=== PATIENT | female | born 1990 | race Caucasian/White ===

== ENCOUNTER 2018-04-02 00:49 | Inpatient (IN) | payer MEDICAID ==
[2018-04-01 11:40] LABS: AMORPHOUS SEDIMENT,URINE TRACE /HPF; APPEARANCE,URINE CLOUDY; BILIRUBIN,URINE NEGATIVE (NEGATIVE); COLOR,URINE YELLOW; GLUCOSE, URINE NEGATIVE (NEGATIVE); KETONES,URINE NEGATIVE (NEGATIVE); LEUKOCYTE ESTERASE,URINE SMALL (NEGATIVE); NITRITE,URINE NEGATIVE (NEGATIVE); PROTEIN,URINE NEGATIVE (NEGATIVE); URINE SPECIFIC GRAVITY 1.009; UROBILINOGEN,URINE NEGATIVE mg/dL (<2.0)
[2018-04-01 11:46] LABS: BASOPHILS % (AUTO) 0.4 % (0-2); EOSINOPHILS % (AUTO) 1.8 % (0-6); HEMATOCRIT 36.8 % (36.0-47.0); HEMOGLOBIN 12.5 g/dL (12.0-15.5); LYMPHOCYTES % (AUTO) 22.7 % (13-45); MEAN CORPUSCULAR HEMOGLOBIN 30.8 pg (27.0-33.4); MEAN CORPUSCULAR HGB CONC 34.1 g/dL (32.0-36.0); MEAN CORPUSCULAR VOLUME 90 fl (80-97); MONOCYTES % (AUTO) 4.4 % (3-13); PLATELET COUNT 247 10^3/uL (150-450); RED BLOOD COUNT 4.07 10^6/uL (3.72-5.28); RED CELL DISTRIBUTION WIDTH 13.9 % (11.5-14.0); SEGMENTED NEUTROPHILS % (AUTO) 70.7 % (42-78); WHITE BLOOD COUNT 14.6 10^3/uL (4.0-10.5)
[2018-04-01 11:47] LABS: ABSOLUTE BASOPHILS # (AUTO) 0.1 10^3/uL (0.0-0.2); ABSOLUTE EOSINOPHILS # (AUTO) 0.3 10^3/uL (0.0-0.6); ABSOLUTE LYMPHOCYTES (AUTO) 3.3 10^3/uL (0.5-4.7); ABSOLUTE MONOCYTES (AUTO) 0.6 10^3/uL (0.1-1.4); ABSOLUTE NEUT (AUTO) 10.4 10^3/uL (1.7-8.2); TOTAL CELLS COUNTED % (AUTO) 100 %
[2018-04-01 12:26] LABS: URINE AMPHETAMINES SCREEN NEGATIVE; URINE BARBITURATES SCREEN NEGATIVE; URINE BENZODIAZEPINES SCREEN NEGATIVE; URINE COCAINE SCREEN NEGATIVE; URINE MARIJUANA (THC) SCREEN NEGATIVE; URINE METHADONE SCREEN NEGATIVE; URINE PHENCYCLIDINE SCREEN NEGATIVE
[2018-04-02] MEDS ORDERED: CEFAZOLIN SODIUM 2 GM in NORMAL SALINE 100 ML IV PRN (05:00)
[2018-04-02] MEDS ORDERED: RINGERS SOLUTION,LACTATED 2,000 ML IV PRN (05:00)
[2018-04-02] MEDS ORDERED: LIDOCAINE 2% INJ-PF (20 MG/ML) 10 ML AMPUL ONE (07:10)
[2018-04-02] MEDS ORDERED: FENTANYL CITRATE INJ/PF 100 MCG/2 ML AMPUL ONE (07:17)
[2018-04-02] MEDS ORDERED: OXYTOCIN 10 UNIT/ML VIAL ONE (07:17)
[2018-04-02] MEDS ORDERED: MIDAZOLAM 2 MG/2 ML INJ ONE (07:17)
[2018-04-02] MEDS ORDERED: ONDANSETRON HCL INJ/PF 4 MG/2 ML SDV ONE (07:18)
[2018-04-02] MEDS ORDERED: OXYTOCIN/NORMAL SALINE 20 UNIT/1,000 ML RTUINJ ONE (07:18)
[2018-04-02] MEDS ORDERED: PHENYLEPHRINE HCL INJ/PF 10 MG/1 ML SDV ONE (07:18)
[2018-04-02] MEDS ORDERED: ACETAMINOPHEN 1,000 MG/100 ML RTUPB IV ONE (07:18)
[2018-04-02] MEDS ORDERED: TETRACAINE HCL/PF 20MG/2ML AMPULE (SPINAL) ONE (07:19)
[2018-04-02] MEDS ORDERED: MEPERIDINE HCL/PF INJ 25 MG/1 ML DISP.SYRIN IV PRN (08:30)
[2018-04-02] MEDS ORDERED: DIPHENHYDRAMINE HCL 50 MG/ML VIAL IV PRN (08:30)
[2018-04-02] MEDS ORDERED: FENTANYL CITRATE INJ/PF 100 MCG/2 ML AMPUL IV PRN ×3 (08:30)
[2018-04-02] MEDS ORDERED: PROMETHAZINE HCL INJ 25 MG/1 ML VIAL IV PRN ×2 (08:30→09:01)
[2018-04-02] MEDS ORDERED: MORPHINE SULFATE 10 MG/ML INJ IV PRN (08:30)
[2018-04-02] MEDS ORDERED: ACETAMINOPHEN 325 MG TABLET PO PRN (09:01)
[2018-04-02] MEDS ORDERED: HYDROMORPHONE HCL INJ/PF 2 MG/ML AMPULE IV PRN (09:01)
[2018-04-02] MEDS ORDERED: ACETAMINOPHEN 1,000 MG/100 ML RTUPB IV PRN (09:01)
[2018-04-02] MEDS ORDERED: OXYTOCIN/NORMAL SALINE 20 UNIT/1,000 ML RTUINJ IV PRN (09:01)
[2018-04-02] MEDS ORDERED: SIMETHICONE 80 MG TAB.CHEW PO PRN (09:01)
[2018-04-02] MEDS ORDERED: DIPH/PERTUSS(ACELL)/TETANUS VAC/PF 0.5 ML SYR (>=10YO) IM PRN (09:01)
[2018-04-02] MEDS ORDERED: MEASLES,MUMPS&RUBELLA VACC/PF 0.5 ML VIAL SUBCUT PRN (09:01)
[2018-04-02] MEDS ORDERED: RINGERS SOLUTION,LACTATED 1,000 ML IV PRN (09:01)
[2018-04-02] MEDS ORDERED: OXYCODONE-ACETAMINOPHEN 5-325 MG TABLET PO PRN (09:01)
--- NOTE | 2018-04-02 09:05 | PDOC DELIVERY SUMMARY ---
Delivery Summary - Maternal Hx : II Hx # Pregnancies: 1 DAYAMI: 04/09/18 Gestational Age: 39 Ruptured Membranes: AROM Time of Rupture: 08:24 Fluids: Clear - Delivery Presentation: Vertex Heart Rate Monitoring: Done Pre-Operatively Support Person Present: Yes Location: OR : Scheduled Placenta: Within Normal Limits Delivery of Placenta Date: 04/02/18 Delivery of Placenta Time: 08:27 - Medications Type of Anesthesia:: Spinal - Infant Assess and Care Baby 1 Male Delivery of Date: 04/02/18 Delivery of Time: 08:25 Preprinted Number On Band: [id number] Infant Skin to Skin: No To Nursery At: 08:32 Mode of Transport: Bassinet - Delivery Personnel Trailer Assembler: LAZARUS POTTER RN: NATALIIA PEREZ RN: KIANA BELL
--- NOTE | 2018-04-02 09:16 | Operative Report ---
Operative Report DATE OF SURGERY: 04/02/18 PREOPERATIVE DIAGNOSIS: Patient desires repeat to prevent risk of uterine rupture. She also desires tubal ligation POSTOPERATIVE DIAGNOSIS: Same OPERATION: Repeat via low transverse uterine incision tubal ligation with bilateral Filshie clip application SURGEON: ARNULFO BUCHANAN ANESTHESIA: Spinal TISSUE REMOVED OR ALTERED: Placenta COMPLICATIONS: None ESTIMATED BLOOD LOSS: 500 cc INTRAOPERATIVE FINDINGS: Viable male normal female pelvis PROCEDURE: Patient was taken to the OR and placed in supine position after her spinal anesthesia. She is prepared and draped in sterile fashion. Shaw was placed for drainage of the bladder. Low transverse incision was made and carried down the level of the fascia. The fascial incision was made with knife and extended bilaterally with curved Witt scissors. The fascia was off the rectus muscles using sharp and blunt dissection. The rectus muscles are in the midline. The peritoneum was entered without incident. Bladder blade was placed in uterine segment was identified. A low transverse incision was made creating a bladder flap. Bladder blade was placed low transverse uterine incision was made with the c-safe knife and extended with fingertips. The baby was delivered with some fundal pressure. Mouth and nose were suctioned free. The cord is doubly clamped and cut. Baby is passed off to the maple products maker in attendance. The placenta was manually extracted with trailing membranes. The uterus was externalized wrapped in a moist lap sponge. Uterine contents wiped free. Uterus was closed with a running locking layer of 0 chromic suture using the second layer to imbricate the first completing a double layer closure of the uterus. The serosa was closed with a running 2-0 chromic stitch. The tubal ligation was carried out using Filshie clips placed at each mid isthmic portion on the fallopian tubes. Each tube was identified by its fimbriated ends for proper anatomic identification. The pelvis was irrigated and suctioned free of fluid the uterus was replaced in the abdomen. The abdominal wall peritoneum was closed with running 2-0 chromic stitch. Fascia was closed with a running 0 Vicryl in 2 segments. Roverto's layer was brought together with 0 plain gut stitch and the skin was closed with running subcuticular 4-0 undyed Vicryl stitch. The wound was dressed mother and baby did well.
[2018-04-02] MEDS: DOCUSATE SODIUM 100 MG CAPSULE PO SCH ×2 (11:01→17:13)
[2018-04-02] MEDS: PRENATAL VITAMIN W DHA CAPSULE PO SCH (11:01)
[2018-04-02] MEDS: KETOROLAC TROMETHAMINE INJ/PF 30 MG/1 ML SDV IV SCH ×2 (14:01→22:54)
[2018-04-02] MEDS: OXYCODONE-ACETAMINOPHEN 5-325 MG TABLET PO PRN (17:13)
[2018-04-03] MEDS: KETOROLAC TROMETHAMINE INJ/PF 30 MG/1 ML SDV IV SCH (06:17)
[2018-04-03 07:07] LABS: HEMATOCRIT 31.6 % (36.0-47.0); HEMOGLOBIN 10.7 g/dL (12.0-15.5); MEAN CORPUSCULAR HEMOGLOBIN 30.7 pg (27.0-33.4); MEAN CORPUSCULAR HGB CONC 33.7 g/dL (32.0-36.0); MEAN CORPUSCULAR VOLUME 91 fl (80-97); PLATELET COUNT 194 10^3/uL (150-450); RED BLOOD COUNT 3.47 10^6/uL (3.72-5.28); RED CELL DISTRIBUTION WIDTH 13.9 % (11.5-14.0); WHITE BLOOD COUNT 14.6 10^3/uL (4.0-10.5)
[2018-04-03] MEDS: PRENATAL VITAMIN W DHA CAPSULE PO SCH (09:52)
[2018-04-03] MEDS: DOCUSATE SODIUM 100 MG CAPSULE PO SCH ×2 (09:53→17:49)
--- NOTE | 2018-04-03 11:22 | PDOC PROGRESS REPORT ---
Subjective-OB Progress Note for:: 04/03/18 Subjective: reports bleeding slowing, pain controlled with current meds, tolerating diet, denies needs, +passing gas Physical Exam (OB) Vital Signs: Temp Pulse Resp BP Pulse Ox 97.9 F 73 15 115/66 98 04/03/18 07:53 04/03/18 07:53 04/03/18 07:53 04/03/18 07:53 04/03/18 07:53 Intake & Output 04/02/18 04/03/18 04/04/18 06:59 06:59 06:59 Intake Total 1250 400 Output Total 2100 Balance -850 400 Weight 83.01 kg - Dressing Removed: No - opsite dressing D&I, no redness, drainage or swelling noted Incision: Dressing, Well Approximated - Abdomen Description: Tender, Soft Hernia Present: No Fundal Description: Firm, Midline Fundal Height: u/u - u/2 - Abdominal Inspection: Normal - Extremities Lower extremities: Elvis's sign - neg Calf: Normal, Nontender Objective-Diagnostic Laboratory: 04/03/18 06:32 04/03/18 06:32 WBC 14.6 H RBC 3.47 L Hgb 10.7 L Hct 31.6 L MCV 91 MCH 30.7 MCHC 33.7 RDW 13.9 Plt Count 194 Assessment and Plan(PN) - Assessment and Plan (1) Delivery by emergency caesarean section Is this a current diagnosis for this admission?: Yes - Time Spent with Patient Time with patient: Less than 15 minutes Medications reviewed and adjusted accordingly: Yes - Disposition Anticipated Discharge: Home Within: within 24 hours
[2018-04-03] MEDS: IBUPROFEN 800 MG TABLET PO SCH ×3 (12:51→23:40)
[2018-04-04] MEDS: OXYCODONE-ACETAMINOPHEN 5-325 MG TABLET PO PRN (00:45)
[2018-04-04] MEDS: IBUPROFEN 800 MG TABLET PO SCH ×2 (06:03→12:26)
[2018-04-04 09:41] VITALS: BP 129/71
--- NOTE | 2018-04-04 09:49 | PDOC PROGRESS REPORT ---
Subjective-OB Progress Note for:: 04/04/18 Subjective: Ready to go home. Physical Exam (OB) Vital Signs: Temp Pulse Resp BP Pulse Ox 97.6 F 74 16 129/71 H 97 04/04/18 09:36 04/04/18 09:36 04/04/18 09:36 04/04/18 09:36 04/04/18 09:36 Intake & Output 04/03/18 04/04/18 04/05/18 06:59 06:59 06:59 Intake Total 1250 3550 Output Total 2100 Balance -850 3550 Weight 81 kg - PIH/Pre-Eclampsia DTR's: 2 + Clonus: Negative Headache: Absent Epigastric Pain: No Visual Changes: No - Dressing Removed: No - opsite dressing D&I Incision: Well Approximated Closure Type: Surgical Glue - Lochia Lochia Amount: Scant < 10 ml Lochia Color: Rubra/Red - Abdomen Description: Tender, Soft Hernia Present: No Bowel Sounds: Normoactive Flatus Presence: Present Stool: No Fundal Description: Firm, Midline Fundal Height: u/u - u/2 Objective-Diagnostic Laboratory: 04/03/18 06:32 Assessment and Plan(PN) - Time Spent with Patient Medications reviewed and adjusted accordingly: Yes - Disposition Anticipated Discharge: Home
[2018-04-04] MEDS: PRENATAL VITAMIN W DHA CAPSULE PO SCH (09:52)
[2018-04-04] MEDS: DOCUSATE SODIUM 100 MG CAPSULE PO SCH (09:53)
--- NOTE | 2018-04-04 10:18 | PDOC DISCHARGE SUMMARY ---
Final Diagnosis Discharge Date: 04/04/18 - Final Diagnosis (1) Delivery by elective caesarean section Is this a current diagnosis for this admission?: Yes (2) Gestational hypertension Is this a current diagnosis for this admission?: Yes (3) Is this a current diagnosis for this admission?: Yes (4) Scoliosis Is this a current diagnosis for this admission?: Yes Discharge Data - Discharge Medication Prescriptions: Oxycodone HCl/Acetaminophen [Percocet 5-325 mg Tablet] 1 tab PO Q4HP PRN #20 tablet PRN Reason: Ibuprofen [Motrin 800 mg Tablet] 800 mg PO Q6 #30 tablet Home Medications: Vit/Iron Fum/Folic AC [ Tablet] 1 tab PO DAILY 02/03/16 Ibuprofen [Motrin 800 mg Tablet] 800 mg PO Q6 #30 tablet 04/04/18 Oxycodone HCl/Acetaminophen [Percocet 5-325 mg Tablet] 1 tab PO Q4HP PRN #20 tablet 04/04/18 Gestational Age: 39 wks Reason(s) for Admission: Ceasarean Section-Repeat Procedures: Ultrasound Intrapartum Procedure(s): : Low Cervical, Transverse - Data Baby 1 Male at 1 minute: 7 at 5 minutes: 9 Weight: 2510 kg Home with Mother: Yes Complications: No - Diagnosis Test Laboratory: Temp Pulse Resp BP Pulse Ox 97.6 F 74 16 129/71 H 97 04/04/18 09:36 04/04/18 09:36 04/04/18 09:36 04/04/18 09:36 04/04/18 09:36 04/01/18 04/01/18 04/03/18 10:40 11:00 06:32 RBC 4.07 3.47 L Hgb 12.5 10.7 L Hct 36.8 31.6 L Urine Opiates Screen NEGATIVE - Discharge information/Instructions Discharge Activity: Activity As Tolerated, Balance Activity w/Rest, No Lifting Over 10 Pounds, No Lifting/Push/Pulling, Non-Ambulatory Child, Pelvic Rest, Slowly Increase Activity, No tub bath Discharge Diet: Regular Disposition: HOME, SELF-CARE Follow up with: [facility] in: 1, Weeks
== END 2018-04-04 16:57 | disposition home or self-care (01) | DRG 766 ==
LOC: 2S 05:17
PROVIDERS: ADMIT Obstetrics & Gynecology; ATTEND Obstetrics & Gynecology
PROC: 0UL70CZ Occlusion of Bilateral Fallopian Tubes with Extraluminal Device, Open Approach (ICD-10-PCS; 2018-04-02)
PROC: 4A1HXCZ Monitoring of Products of Conception, Cardiac Rate, External Approach (ICD-10-PCS; 2018-04-02)
PROC: 10D00Z1 Extraction of Products of Conception, Low, Open Approach (ICD-10-PCS; principal; 2018-04-02 07:45)
DX: O13.4 Gestational [pregnancy-induced] hypertension without significant proteinuria, complicating childbirth (principal); O34.211 Maternal care for low transverse scar from previous cesarean delivery; O99.89 Other specified diseases and conditions complicating pregnancy, childbirth and the puerperium; M41.9 Scoliosis, unspecified; Z30.2 Encounter for sterilization; Z3A.39 39 weeks gestation of pregnancy; Z37.0 Single live birth; Z80.3 Family history of malignant neoplasm of breast
CPT/HCPCS: 1961; 36415; 59025; 80307; 81001; 85025; 85027; 86850; 86900; 86901; 94799; J0131; J0690; J1170; J1885; J2250; J2370; J2405; J2590; J3010; J3490; J7120

== ENCOUNTER 2019-10-15 00:58 | Inpatient (IN) | payer SELFPAY ==
--- NOTE | 2019-10-15 02:10 | ER Document Report ---
ED Medical Screen (RME) - General Stated Complaint: UPPER ABDOMINAL PAIN Time Seen by Provider: 10/15/19 02:03 Primary Care Provider: ARNULFO BUCHANAN MD [Primary Care Provider] - Follow up as needed Mode of Arrival: Ambulatory Information source: Patient Notes: Otherwise healthy 29-year-old female presents emergency department chief complaint of epigastric pain. Patient reports she has "attacks" every so often for the last few years. Tonight she states that the pain is the worst it has been, states the pain is in the epigastric and right upper quadrant area with mild nausea. She still has her gallbladder. Tenderness in the epigastric area and right upper quadrant. Negative Ahmadi sign however exam is limited due to position in triage. I have greeted and performed a rapid initial assessment of this patient. A comprehensive ED assessment and evaluation of the patient, analysis of test results and completion of the medical decision making process will be conducted by additional ED providers. I have specifically instructed the patient or family members with the patient to immediately return to any nursing staff should anything change in the patient's condition or with their chief complaint. TRAVEL OUTSIDE OF THE [place] IN LAST 30 DAYS: No - Related Data Allergies/Adverse Reactions: No Known Allergies Allergy (Verified 04/01/18 11:20) Past Medical History - Past Medical History Cardiac Medical History: Reports: Hx Hypertension - with last Denies: Hx Heart Murmur Neurological Medical History: Denies: Hx Cerebrovascular Accident Musculoskeltal Medical History: Denies Hx Fibromyalgia Traumatic Medical History: Denies: Hx Fractures Physical Exam - Vital signs Vitals: Temp Pulse Resp BP Pulse Ox 97.6 F 63 20 141/73 H 99 10/15/19 01:02 10/15/19 01:02 10/15/19 01:02 10/15/19 01:02 10/15/19 01:02 Course - Vital Signs Vital signs: Temp Pulse Resp BP Pulse Ox 97.6 F 63 20 141/73 H 99 10/15/19 01:02 10/15/19 01:02 10/15/19 01:02 10/15/19 01:02 10/15/19 01:02 Doctor's Discharge - Discharge Referrals: ARNULFO BUCHANAN MD [Primary Care Provider] - Follow up as needed
[2019-10-15 02:41] LABS: ABSOLUTE EOSINOPHILS # (AUTO) 0.2 10^3/uL (0.0-0.6); ABSOLUTE LYMPHOCYTES (AUTO) 2.2 10^3/uL (0.5-4.7); ABSOLUTE MONOCYTES (AUTO) 0.5 10^3/uL (0.1-1.4); ABSOLUTE NEUT (AUTO) 6.8 10^3/uL (1.7-8.2); BASOPHILS % (AUTO) 0.2 % (0-2); HEMOGLOBIN 13.9 g/dL (12.0-15.5); LYMPHOCYTES % (AUTO) 22.5 % (13-45); MEAN CORPUSCULAR HEMOGLOBIN 30.9 pg (27.0-33.4); MEAN CORPUSCULAR HGB CONC 33.9 g/dL (32.0-36.0); MEAN CORPUSCULAR VOLUME 91 fl (80-97); MONOCYTES % (AUTO) 5.5 % (3-13); PLATELET COUNT 229 10^3/uL (150-450); RED BLOOD COUNT 4.49 10^6/uL (3.72-5.28); RED CELL DISTRIBUTION WIDTH 13.9 % (11.5-14.0); SEGMENTED NEUTROPHILS % (AUTO) 69.8 % (42-78); TOTAL CELLS COUNTED % (AUTO) 100 %; WHITE BLOOD COUNT 9.7 10^3/uL (4.0-10.5)
[2019-10-15 02:43] LABS: APPEARANCE,URINE CLEAR; BILIRUBIN,URINE NEGATIVE (NEGATIVE); COLOR,URINE YELLOW; GLUCOSE, URINE NEGATIVE (NEGATIVE); KETONES,URINE NEGATIVE (NEGATIVE); LEUKOCYTE ESTERASE,URINE NEGATIVE (NEGATIVE); NITRITE,URINE NEGATIVE (NEGATIVE); PROTEIN,URINE NEGATIVE (NEGATIVE); URINE SPECIFIC GRAVITY 1.009
[2019-10-15 02:57] LABS: ALBUMIN 4.1 g/dL (3.5-5.0); ALKALINE PHOSPHATASE 77 U/L (38-126); ANION GAP 9 (5-19); ASPARTATE AMINO TRANSFERASE 692 U/L (14-36); BILIRUBIN,DIRECT 0.5 mg/dL (0.0-0.4); BILIRUBIN,TOTAL 0.8 mg/dL (0.2-1.3); BLOOD UREA NITROGEN 13 mg/dL (7-20); CALCIUM 9.3 mg/dL (8.4-10.2); CARBON DIOXIDE 26 mmol/L (22-30); CHLORIDE 106 mmol/L (98-107); GLUCOSE 111 mg/dL (75-110); POTASSIUM 4.4 mmol/L (3.6-5.0)
--- NOTE | 2019-10-15 03:23 | RADIOLOGY REPORT (SQ) ---
EXAM DESCRIPTION: US ABDOMEN LIMITED COMPLETED DATE/TME: 10/15/2019 02:08 CLINICAL HISTORY: 29 years Female, RUQ/epigastric pain Comparison: None. LIMITATIONS: None. FINDINGS: Cholelithiasis, negative sonographic Ahmadi's test, liver, a 1.0-cm diameter common bile duct, no intrahepatic ductal dilation, hepatopetal patent flow of the portal vein, 11-cm right kidney, pancreas, visualized vasculature/abdominal aorta, and no significant ascites appear otherwise unremarkable. IMPRESSION: No acute findings. Cholelithiasis. 1.0 cm dilated common bile duct, nonspecific. No intrahepatic ductal dilation.
--- NOTE | 2019-10-15 04:40 | ER Document Report ---
ED GI/ - General Chief Complaint: Abdominal Pain Stated Complaint: UPPER ABDOMINAL PAIN Time Seen by Provider: 10/15/19 02:03 Primary Care Provider: ARNULFO BUCHANAN MD [Primary Care Provider] - Follow up as needed Mode of Arrival: Ambulatory Information source: Patient Notes: 29-year-old female presents to ED for complaint of epigastric right upper quadrant pain. She states she is been having these "attacks "every so often for the last 3 to 4 years. She states tonight the pain was worse she has had. The pain is in the right upper quadrant with some mild nausea. She does have her gallbladder. She has never had any ultrasounds of her gallbladder. TRAVEL OUTSIDE OF THE [place] IN LAST 30 DAYS: No - HPI Patient complains to provider of: Abdominal pain, Other Onset: Other - States she has had this off and on for couple years this is the worst pain she has had tonight. She states the pain is better now is just a achy tenderness now Timing/Duration: Intermittent Quality of pain: Dull Severity at maximum: Moderate Severity in ED: Mild Pain Level: 1 Location: RUQ Vaginal bleeding (Compared to normal period): None LMP: Yesterday Associated symptoms: Nausea Exacerbated by: Food Relieved by: Denies Similar symptoms previously: Yes Recently seen / treated by doctor: No - Related Data Allergies/Adverse Reactions: No Known Allergies Allergy (Verified 04/01/18 11:20) Past Medical History - General Information source: Patient - Social History Smoking Status: Current Every Day Smoker Cigarette use (# per day): Yes - 1/2 pack/day Smoking Education Provided: Yes - 4 minutes Frequency of alcohol use: None Drug Abuse: None Lives with: Family Family History: Reviewed & Not Pertinent Patient has suicidal ideation: No Patient has homicidal ideation: No - Past Medical History Cardiac Medical History: Reports: Hx Hypertension - with last Pulmonary Medical History: Reports: None EENT Medical History: Reports: None Neurological Medical History: Reports: None Endocrine Medical History: Reports: None Renal/ Medical History: Reports: None Malignancy Medical History: Reports: None GI Medical History: Reports: None Musculoskeletal Medical History: Reports Hx Musculoskeletal Deformity - Scoliosis Skin Medical History: Reports None Psychiatric Medical History: Reports: None Traumatic Medical History: Reports: None Infectious Medical History: Reports: None Past Surgical History: Reports: Hx Orthopedic Surgery - [facility] - Immunizations Immunizations up to date: Yes Review of Systems - Review of Systems Constitutional: No symptoms reported EENT: No symptoms reported Cardiovascular: No symptoms reported Respiratory: No symptoms reported Gastrointestinal: Abdominal pain, Nausea Genitourinary: No symptoms reported Female Genitourinary: No symptoms reported Musculoskeletal: No symptoms reported Skin: No symptoms reported Hematologic/Lymphatic: No symptoms reported Neurological/Psychological: No symptoms reported -: Yes All other systems reviewed and negative Physical Exam - Vital signs Vitals: Temp Pulse Resp BP Pulse Ox 97.6 F 63 20 141/73 H 99 10/15/19 01:02 10/15/19 01:02 10/15/19 01:02 10/15/19 01:02 10/15/19 01:02 Interpretation: Normal - General General appearance: Appears well, Alert - HEENT Head: Normocephalic, Atraumatic Eyes: Normal Pupils: PERRL - Respiratory Respiratory status: No respiratory distress Chest status: Nontender Breath sounds: Normal Chest palpation: Normal - Cardiovascular Rhythm: Regular Heart sounds: Normal auscultation Murmur: No - Abdominal Inspection: Normal Distension: No distension Bowel sounds: Normal Tenderness: Tender - Minimal right upper quadrant tenderness Organomegaly: No organomegaly - Back Back: Normal, Nontender - Extremities General upper extremity: Normal inspection, Nontender, Normal color, Normal ROM, Normal temperature General lower extremity: Normal inspection, Nontender, Normal color, Normal ROM, Normal temperature, Normal weight bearing. No: Elvis's sign - Neurological Neuro grossly intact: Yes Cognition: Normal Orientation: AAOx4 [place] Coma Scale Eye Opening: Spontaneous [place] Coma Scale Verbal: Oriented Tessy Coma Scale Motor: Obeys Commands [place] Coma Scale Total: 15 Speech: Normal Motor strength normal: LUE, RUE, LLE, RLE Sensory: Normal - Psychological Associated symptoms: Normal affect, Normal mood - Skin Skin Temperature: Warm Skin Moisture: Dry Skin Color: Normal Course - Re-evaluation Re-evalutation: 10/15/19 06:20 Surgeon was consulted earlier for the elevated AST of 692 with dilated common bile duct and cholelithiasis. He stated she would need an MRCP and possible transfer for ERCP due to the elevation in the AST with dilated common bile duct at 1.0 cm and cholelithiasis. [facility] has been contacted they have accepted the patient as long as there is no change with the MRCP I Dr. Riccardo Ahumada has accepted the patient and they are arranging a room. MRCP has been ordered and MRI form sent to MRI. Dr. Lemus has completed the [facility] form. 10/15/19 08:53 MRCP shows patient does have cholelithiasis but no dilated ducts. States the common bile duct is normal caliber no dilatation of the pancreatic duct no ductal filling defects. Pancreas is generally homogenous no gross masses or significant signal alteration surrounding inflammatory changes liver spleen kidney and adrenals are no significant abnormalities. Dr. Medina has been called to inform him that he will need to come and see the patient to determine dispensation because the transfer will be canceled as she does not need ERCP. Dr. Hernandez said he would be down to see the patient in the next 15-20 minutes. - Vital Signs Vital signs: Temp Pulse Resp BP Pulse Ox 97.6 F 62 18 114/60 98 10/15/19 06:04 10/15/19 06:04 10/15/19 06:04 10/15/19 06:04 10/15/19 06:04 - Laboratory Result Diagrams: 10/15/19 02:22 10/15/19 02:22 Laboratory results interpreted by me: 10/15/19 10/15/19 02:20 02:22 Glucose 111 H Direct Bilirubin 0.5 H AST 692 H Urine Urobilinogen 2.0 H - Diagnostic Test Radiology reviewed: Image reviewed, Reports reviewed Discharge - Discharge Clinical Impression: Elevated LFTs Cholelithiasis Qualifiers: Cholelithiasis location: gallbladder Cholecystitis presence: without cholecystitis Biliary obstruction: without biliary obstruction Qualified Code(s): K80.20 - Calculus of gallbladder without cholecystitis without obstruction Disposition: ADMITTED INPATIENT Admitting Provider: Surgicalist - juan Unit Admitted: Surgical Floor Referrals: ARNULFO BUCHANAN MD [Primary Care Provider] - Follow up as needed
--- NOTE | 2019-10-15 04:55 | PDOC CONSULTATION ---
Consultation Consult Date: 10/15/19 Provider Consulted: CLARENCE BARLOW Consult reason:: Abdominal pains with gallstones History of Present Illness Admission Date/PCP: ARNULFO BUCHANAN MD History of Present Illness: FARIDA PITT is a 29 year old female who suddenly complained of upper abdominal pains radiating to the back around 9 PM last night after a fatty meal. This was associated with nausea. The pains persisted and patient went to the ED at around midnight and ultrasound of the gallbladder showed gallstones as well as dilated common bile duct. Her LFTs are elevated. Past Medical History Cardiac Medical History: Reports: Hypertension - with last Denies: Heart Murmur Pulmonary Medical History: Reports: None EENT Medical History: Reports: None Neurological Medical History: Reports: None Endocrine Medical History: Reports: None Renal/ Medical History: Reports: None Malignancy Medical History: Reports: None GI Medical History: Reports: None Musculoskeltal Medical History: Denies: Fibromyalgia Skin Medical History: Reports: None Psychiatric Medical History: Reports: None Traumatic Medical History: Reports: None Infectious Medical History: Reports: None Past Surgical History Past Surgical History: Reports: Orthopedic Surgery - [facility] Social History Lives with: Family Smoking Status: Current Every Day Smoker Frequency of Alcohol Use: None Family History Family History: Reviewed & Not Pertinent Parental Family History Reviewed: Yes Children Family History Reviewed: No Sibling(s) Family History Reviewed.: No Medication/Allergy Home Medications: Vit/Iron Fum/Folic AC [ Tablet] 1 tab PO DAILY 02/03/16 Ibuprofen [Motrin 800 mg Tablet] 800 mg PO Q6 #30 tablet 04/04/18 Oxycodone HCl/Acetaminophen [Percocet 5-325 mg Tablet] 1 tab PO Q4HP PRN #20 tablet 04/04/18 Allergies/Adverse Reactions: No Known Allergies Allergy (Verified 04/01/18 11:20) Review of Systems Constitutional: PRESENT: as per HPI Gastrointestinal: PRESENT: as per HPI Physical Exam Vital Signs: Temp Pulse Resp BP Pulse Ox 97.6 F 63 20 141/73 H 99 10/15/19 01:02 10/15/19 01:02 10/15/19 01:02 10/15/19 01:02 10/15/19 01:02 Intake & Output 10/13/19 10/14/19 10/15/19 06:59 06:59 06:59 Weight 76.2 kg General appearance: PRESENT: no acute distress Head exam: PRESENT: atraumatic Eye exam: PRESENT: conjunctiva pink Neck exam: PRESENT: full ROM Respiratory exam: PRESENT: clear to auscultation yanique Cardiovascular exam: PRESENT: RRR Pulses: PRESENT: normal radial pulses Vascular exam: PRESENT: normal capillary refill GI/Abdominal exam: PRESENT: soft - Minimal tenderness in the epigastric area Rectal exam: PRESENT: deferred Neurological exam: PRESENT: alert, oriented to person, oriented to place, oriented to time, oriented to situation Psychiatric exam: PRESENT: appropriate affect Skin exam: PRESENT: normal color, warm Results Laboratory Results: 10/15/19 02:22 10/15/19 02:22 10/15/19 10/15/19 10/15/19 02:20 02:22 02:22 WBC 9.7 RBC 4.49 Hgb 13.9 Hct 41.0 MCV 91 MCH 30.9 MCHC 33.9 RDW 13.9 Plt Count 229 Seg Neutrophils % 69.8 Sodium 141.3 Potassium 4.4 Chloride 106 Carbon Dioxide 26 Anion Gap 9 BUN 13 Creatinine 0.76 Est GFR ( Amer) > 60 Glucose 111 H Calcium 9.3 Total Bilirubin 0.8 AST 692 H Alkaline Phosphatase 77 Total Protein 7.0 Albumin 4.1 Lipase 101.3 Urine Color YELLOW Urine Appearance CLEAR Urine pH 7.0 Ur Specific [place] 1.009 Urine Protein NEGATIVE Urine Glucose (UA) NEGATIVE Urine Ketones NEGATIVE Urine Blood NEGATIVE Urine Nitrite NEGATIVE Ur Leukocyte Esterase NEGATIVE Urine WBC (Auto) 0 Urine RBC (Auto) 0 Impressions: Abdomen Ultrasound 10/15/19 02:08 IMPRESSION: No acute findings. Cholelithiasis. 1.0 cm dilated common bile duct, nonspecific. No intrahepatic ductal dilation. Assessment & Plan - Diagnosis (1) Cholelithiasis Is this a current diagnosis for this admission?: Yes (2) Elevated LFTs Is this a current diagnosis for this admission?: Yes - Time Time Spent: 30 to 50 Minutes - Plan Summary Plan Summary: 29-year-old female with history of off and on mild right upper quadrant pains for the past year. Complained of severe epigastric pains radiating to the back with nausea at 9 PM last night. Ultrasound of the gallbladder in ED showed gallstones with dilated common bile duct of about 10 mm. LFTs are also elevated. Impression is cholelithiasis, common bile duct stone with elevated LFTs. Recommendations: Patient has likely common bile duct stone with elevated LFTs and therefore will need GI consultation. We do not have any emergency GI consult in the hospital at this time and therefore patient to need to be transferred out to a tertiary ospital. Meantime an MRCP may be done to document common bile duct stone.
--- NOTE | 2019-10-15 08:39 | RADIOLOGY REPORT (SQ) ---
EXAM DESCRIPTION: MRI ABDOMEN WITHOUT COMPLETED DATE/TIME: 10/15/2019 7:55 am REASON FOR STUDY: mrcp cholelithiasis with 1.0 common bile duct lft COMPARISON: None. TECHNIQUE: Noncontrast MRCP. Source and MIP images reviewed. LIMITATIONS: Spinal metal artifact. Motion. FINDINGS: GALLBLADDER: Cholelithiasis. INTRAHEPATIC DUCTS: Nondilated. EXTRAHEPATIC DUCTS: Common duct is normal caliber. No dilatation of the pancreatic duct. No ductal filling defects noted. PANCREAS: Generally homogeneous, no gross mass or significant signal alteration. No surrounding infl ammatory changes or fluid. Pancreatic duct is normal. LIVER, SPLEEN, KIDNEYS, ADRENALS: No significant abnormality. VESSELS: No evidence of aneurysm. Grossly appropriate flow voids in the major vascular structures. LUNG BASES: Grossly clear. OTHER: No other significant finding. IMPRESSION: Cholelithiasis. No evidence of choledocholithiasis. TECHNICAL DOCUMENTATION: JOB ID: [id number] [employer]- All Rights Reserved Reading location - IP/workstation name: [email or web address]
[2019-10-15 10:43] LABS: ALBUMIN 3.8 g/dL (3.5-5.0); ALKALINE PHOSPHATASE 93 U/L (38-126); ANION GAP 6 (5-19); BILIRUBIN,DIRECT 1.1 mg/dL (0.0-0.4); BILIRUBIN,TOTAL 2.1 mg/dL (0.2-1.3); BLOOD UREA NITROGEN 11 mg/dL (7-20); CARBON DIOXIDE 25 mmol/L (22-30); CHLORIDE 111 mmol/L (98-107); GLUCOSE 91 mg/dL (75-110); POTASSIUM 4.6 mmol/L (3.6-5.0); TOTAL PROTEIN 6.7 g/dL (6.3-8.2)
[2019-10-15 10:50] LABS: ASPARTATE AMINO TRANSFERASE 1088 U/L (14-36)
--- NOTE | 2019-10-15 11:29 | PDOC H&P ---
History of Present Illness Admission Date/PCP: 10/15/19 09:14 ARNULFO BUCHANAN MD Patient complains of: Epigastric pains radiating to the back History of Present Illness: FARIDA PITT is a 29 year old female who suddenly complained of upper abdominal pains radiating to the back around 9 PM last night after a fatty meal. This was associated with nausea. The pains persisted and patient went to the ED at around midnight and ultrasound of the gallbladder showed gallstones as well as dilated common bile duct. Her LFTs are elevated. Past Medical History Cardiac Medical History: Reports: Hypertension - with last Denies: Heart Murmur Pulmonary Medical History: Reports: None EENT Medical History: Reports: None Neurological Medical History: Reports: None Endocrine Medical History: Reports: None Renal/ Medical History: Reports: None Malignancy Medical History: Reports: None GI Medical History: Reports: None Musculoskeltal Medical History: Denies: Fibromyalgia Skin Medical History: Reports: None Psychiatric Medical History: Reports: None Traumatic Medical History: Reports: None Infectious Medical History: Reports: None Past Surgical History Past Surgical History: Reports: Orthopedic Surgery - Ramonita howell Social History Lives with: Family Smoking Status: Current Every Day Smoker Frequency of Alcohol Use: None Family History Family History: Reviewed & Not Pertinent Parental Family History Reviewed: Yes Children Family History Reviewed: No Sibling(s) Family History Reviewed.: No Medication/Allergy Home Medications: No Home Medications 10/15/19 Allergies/Adverse Reactions: No Known Allergies Allergy (Verified 04/01/18 11:20) Review of Systems Constitutional: PRESENT: other - Denies fever nor chills Gastrointestinal: PRESENT: abdominal pain, nausea Physical Exam Vital Signs: Temp Pulse Resp BP Pulse Ox 97.6 F 62 18 114/60 98 10/15/19 06:04 10/15/19 06:04 10/15/19 06:04 10/15/19 06:04 10/15/19 06:04 Intake & Output 10/14/19 10/15/19 10/16/19 06:59 06:59 06:59 Weight 76.2 kg General appearance: PRESENT: mild distress Head exam: PRESENT: atraumatic Eye exam: PRESENT: conjunctiva pink Mouth exam: PRESENT: moist Neck exam: PRESENT: full ROM Respiratory exam: PRESENT: clear to auscultation yanique Cardiovascular exam: PRESENT: RRR Pulses: PRESENT: normal radial pulses, normal femoral pulses GI/Abdominal exam: PRESENT: soft, tenderness - Minimal epigastric and right upper quadrant tenderness Rectal exam: PRESENT: deferred Extremities exam: PRESENT: full ROM Musculoskeletal exam: PRESENT: ambulatory Neurological exam: PRESENT: alert, oriented to person, oriented to place, oriented to time, oriented to situation Psychiatric exam: PRESENT: appropriate affect Skin exam: PRESENT: normal color, warm Results Laboratory Results: 10/15/19 02:22 10/15/19 10:16 10/15/19 10/15/19 10/15/19 02:20 02:22 02:22 WBC 9.7 RBC 4.49 Hgb 13.9 Hct 41.0 MCV 91 MCH 30.9 MCHC 33.9 RDW 13.9 Plt Count 229 Seg Neutrophils % 69.8 Sodium 141.3 Potassium 4.4 Chloride 106 Carbon Dioxide 26 Anion Gap 9 BUN 13 Creatinine 0.76 Est GFR ( Amer) > 60 Glucose 111 H Calcium 9.3 Total Bilirubin 0.8 AST 692 H Alkaline Phosphatase 77 Total Protein 7.0 Albumin 4.1 Lipase 101.3 Urine Color YELLOW Urine Appearance CLEAR Urine pH 7.0 Ur Specific [place] 1.009 Urine Protein NEGATIVE Urine Glucose (UA) NEGATIVE Urine Ketones NEGATIVE Urine Blood NEGATIVE Urine Nitrite NEGATIVE Ur Leukocyte Esterase NEGATIVE Urine WBC (Auto) 0 Urine RBC (Auto) 0 10/15/19 10:16 WBC RBC Hgb Hct MCV MCH MCHC RDW Plt Count Seg Neutrophils % Sodium 141.7 Potassium 4.6 Chloride 111 H Carbon Dioxide 25 Anion Gap 6 BUN 11 Creatinine 0.58 Est GFR ( Amer) > 60 Glucose 91 Calcium 9.0 Total Bilirubin 2.1 H AST 1088 H Alkaline Phosphatase 93 Total Protein 6.7 Albumin 3.8 Lipase Urine Color Urine Appearance Urine pH Ur Specific [place] Urine Protein Urine Glucose (UA) Urine Ketones Urine Blood Urine Nitrite Ur Leukocyte Esterase Urine WBC (Auto) Urine RBC (Auto) Impressions: Abdomen Ultrasound 10/15/19 02:08 IMPRESSION: No acute findings. Cholelithiasis. 1.0 cm dilated common bile duct, nonspecific. No intrahepatic ductal dilation. Abdomen MRI 10/15/19 05:11 IMPRESSION: Cholelithiasis. No evidence of choledocholithiasis. Assessment & Plan - Diagnosis (1) Elevated LFTs Is this a current diagnosis for this admission?: Yes (2) Cholelithiasis Is this a current diagnosis for this admission?: Yes - Time Time Spent: 30 to 50 Minutes - Inpatient Certification Medical Necessity: Need For IV Fluids, Need for IV Antibiotics, Need for Surgery - Plan Summary Plan Summary: 29-year-old female with epigastric radiating to the back pains since 9:00 last night after a fatty meal. Noted to have gallstones on ultrasound and dilated common bile duct as well as elevated LFTs. Subsequent MRCP early this morning noted no stones in the common bile duct. Patient also clinically appears to be improved with less pains. Plans: Repeat blood work in the morning and if trending down down to normal will need laparoscopic cholecystectomy with possible intraoperative cholangiogram Meantime, start IV antibiotics
[2019-10-15] MEDS ORDERED: NORMAL SALINE 1000 ML 1,000 ML IV PRN (18:20)
[2019-10-15] MEDS ORDERED: PIPERACILLIN SODIUM/TAZOBACTAM 3.375 GM in NORMAL SALINE 100 ML IV SCH (19:00)
[2019-10-15 19:54] VITALS: BP 109/64
--- NOTE | 2019-10-15 21:09 | PDOC TRANSFER SUMMARY ---
General Admission Date/PCP: 10/15/19 09:14 ARNULFO BUCHANAN MD Admission Date: 10/15/19 Transfer Date: 10/15/19 [facility] Accepting Physician: young Hernandez Resuscitation Status: Full Code - Transfer Diagnosis (1) Elevated LFTs Is this a current diagnosis for this admission?: Yes (2) Cholelithiasis Is this a current diagnosis for this admission?: Yes - Transfer Medications Home Medications: No Home Medications 10/15/19 Transfer Medications: Current Medications Sodium Chloride (Nacl 0.9% 1000 Ml Iv Soln) 1,000 mls @ 125 mls/hr IV CONTINUOUS PRN PRN Reason: THIS MED IS NOT "PRN" Stop: 11/14/19 18:19 Last Admin: 10/15/19 18:33 Dose: 125 mls/hr Documented by: Piperacillin Sod/Tazobactam (Sod 3.375 gm/ Sodium Chloride) 100 mls @ 200 mls/hr IV Q6 BEATRICE Stop: 10/22/19 18:59 Last Admin: 10/15/19 19:26 Dose: 200 mls/hr, 200 mls/hr Documented by: - Allergies Allergies/Adverse Reactions: No Known Allergies Allergy (Verified 04/01/18 11:20) - Diet/Activity Discharge Diet: Clear Liquids Hospital Course Hospital Course: Patient with complaint of severe epigastric and back pains after a fatty meal last night. He went to ED at [place] and had an ultrasound of the gallbladder which showed gallstones with dilated common bile duct of 10 mm. Her LFTs were elevated. Because of this and an MRCP was performed which showed no common bile duct stones and normal common bile duct diameter. I have discussed the MRI findings with the radiologist Dr. Valencia who agrees that there might be a small stone that may not be noticeable because of the patient's metal rods on the back for treatment of patient's scoliosis. Meantime patient symptoms appears to have subsided. Her abdomen remains soft with minimal epigastric tenderness. She was started on IV Zosyn. Patient was then admitted because of the normal MRCP findings. However a repeat liver function test was done which showed liver enzymes went up as well as the bilirubin. A hepatitis panel was ordered but results are still pending Since we do not have on-call gastroenterology to do emergency ERCP, [facility] was then contacted and accepted the patient. Physical Exam Vital Signs: Temp Pulse Resp BP Pulse Ox 97.7 F 48 L 14 109/64 96 10/15/19 19:33 10/15/19 19:33 10/15/19 19:33 10/15/19 19:33 10/15/19 19:33 Intake & Output 10/14/19 10/15/19 10/16/19 06:59 06:59 06:59 Weight 76.2 kg 76.9 kg General appearance: PRESENT: mild distress Respiratory exam: PRESENT: clear to auscultation yanique Cardiovascular exam: PRESENT: RRR Pulses: PRESENT: normal radial pulses Vascular exam: PRESENT: normal capillary refill GI/Abdominal exam: PRESENT: soft, tenderness - Mild epigastric tenderness Rectal exam: PRESENT: deferred Extremities exam: PRESENT: full ROM Musculoskeletal exam: PRESENT: ambulatory Neurological exam: PRESENT: alert, oriented to person, oriented to place, oriented to time, oriented to situation Psychiatric exam: PRESENT: appropriate affect Skin exam: PRESENT: normal color, warm Results Laboratory Results: 10/15/19 02:22 10/15/19 10:16 10/15/19 10/15/19 10/15/19 02:20 02:22 02:22 WBC 9.7 RBC 4.49 Hgb 13.9 Hct 41.0 MCV 91 MCH 30.9 MCHC 33.9 RDW 13.9 Plt Count 229 Seg Neutrophils % 69.8 Sodium 141.3 Potassium 4.4 Chloride 106 Carbon Dioxide 26 Anion Gap 9 BUN 13 Creatinine 0.76 Est GFR ( Amer) > 60 Glucose 111 H Calcium 9.3 Total Bilirubin 0.8 AST 692 H Alkaline Phosphatase 77 Total Protein 7.0 Albumin 4.1 Lipase 101.3 Urine Color YELLOW Urine Appearance CLEAR Urine pH 7.0 Ur Specific [place] 1.009 Urine Protein NEGATIVE Urine Glucose (UA) NEGATIVE Urine Ketones NEGATIVE Urine Blood NEGATIVE Urine Nitrite NEGATIVE Ur Leukocyte Esterase NEGATIVE Urine WBC (Auto) 0 Urine RBC (Auto) 0 10/15/19 10:16 WBC RBC Hgb Hct MCV MCH MCHC RDW Plt Count Seg Neutrophils % Sodium 141.7 Potassium 4.6 Chloride 111 H Carbon Dioxide 25 Anion Gap 6 BUN 11 Creatinine 0.58 Est GFR ( Amer) > 60 Glucose 91 Calcium 9.0 Total Bilirubin 2.1 H AST 1088 H Alkaline Phosphatase 93 Total Protein 6.7 Albumin 3.8 Lipase Urine Color Urine Appearance Urine pH Ur Specific [place] Urine Protein Urine Glucose (UA) Urine Ketones Urine Blood Urine Nitrite Ur Leukocyte Esterase Urine WBC (Auto) Urine RBC (Auto) Impressions: Abdomen Ultrasound 10/15/19 02:08 IMPRESSION: No acute findings. Cholelithiasis. 1.0 cm dilated common bile duct, nonspecific. No intrahepatic ductal dilation. Abdomen MRI 10/15/19 05:11 IMPRESSION: Cholelithiasis. No evidence of choledocholithiasis. Plan Discharge Plan: Patient to be transferred to [facility] for possible ERCP then followed by laparoscopic cholecystectomy. Time Spent: Less than 30 Minutes
[2019-10-19 16:36] LABS: HEPATITIS B CORE AB TOT Negative (Negative); HEPATITIS BE AB Negative (Negative); HEPATITIS BE ANTIGEN Negative (Negative); HEPATITIS C VIRUS AB <0.1 s/co ratio (0.0-0.9); HEPATITS B SURFACE ANTIGEN Negative (Negative)
[2019-10-20 08:23] LABS: HEPATITIS B SURFACE AB QUAL Reactive (.)
== END 2019-10-15 21:57 | disposition short-term general hospital (02) | DRG 446 ==
LOC: ER 00:58 → EH 09:14 → 4S 15:48 → UNDODISIN 21:52
PROVIDERS: ADMIT Surgery; ATTEND Surgery
DX: K80.20 Calculus of gallbladder without cholecystitis without obstruction (principal); M41.9 Scoliosis, unspecified; F17.210 Nicotine dependence, cigarettes, uncomplicated
CPT/HCPCS: 36415; 74181; 76705; 80053; 81001; 83690; 85025; 86704; 86705; 86706; 86707; 86803; 87070; 87340; 87350; 99285; 99406; J2543; J7030; J7050